=== PATIENT | male | born 1985 | race Caucasian/White ===

== ENCOUNTER 2020-01-01 12:04 | Emergency (ER) | payer OTHER ==
[2020-01-01] MEDS ORDERED: OSELTAMIVIR 75 MG CAP ONE (13:29)
[2020-01-01] MEDS ORDERED: AZITHROMYCIN 250 MG TAB ONE (13:29)
[2020-01-01] MEDS ORDERED: KETOROLAC 30 MG/ML INJ ONE (13:29)
--- NOTE | 2020-01-01 13:39 | ER ---
Nurse's Notes [facility] Name: Reji Ramirez Jr Age: 34 yrs Sex: Male : 1985 Arrival Date: 01/01/2020 Time: 12:15 Bed 17 Private MD: Diagnosis: Influenza due to certain identified influenza viruses Presentation: 01/01 12:28 Presenting complaint: Patient states: Fever, unsure how high, body aches, and cough, iw reports unable to lay flat on back without the cough getting worse, pt states he has felt this way for several days per the pt mother. Transition of care: patient was not received from another setting of care. Onset of symptoms was January 01, 2020. Risk Assessment: Do you want to hurt yourself or someone else? Patient reports no desire to harm self or others. Initial Sepsis Screen: Does the patient meet any 2 criteria? No. Patient's initial sepsis screen is negative. Does the patient have a suspected source of infection? No. Patient's initial sepsis screen is negative. Care prior to arrival: None. 12:28 Method Of Arrival: Ambulatory iw 12:28 Acuity: ONOFRE 3 sg Triage Assessment: 12:30 General: Appears in no apparent distress. uncomfortable, ill, Behavior is cooperative, bp appropriate for age, anxious. Pain: Denies pain. EENT: Nares with drainage noted. Neuro: No deficits noted. Cardiovascular: Rhythm is sinus tachycardia. Respiratory: Reports cough that is Airway is patent. GI: No signs and/or symptoms were reported involving the gastrointestinal system. : No signs and/or symptoms were reported regarding the genitourinary system. Derm: No deficits noted. Musculoskeletal: No deficits noted. Historical: - Allergies: 12:30 No Known Allergies; iw - PMHx: 12:30 narcolepsy; iw - PSHx: 12:30 brain tumor resection; brain shunt; iw - Immunization history:: Adult Immunizations up to date. - Coronavirus screen:: The patient has NOT traveled to [place], [place], or [place] in the past 14 days. The patient has NOT had contact with known/suspected case of Coronavirus?. - Social history:: Patient/guardian denies using alcohol, street drugs, The patient lives with family, Smoking status: Patient reports the use of cigarette tobacco products. - Family history:: not pertinent. - Ebola Screening: : Patient negative for fever greater than or equal to 101.5 degrees Fahrenheit, and additional compatible Ebola Virus Disease symptoms Patient denies exposure to infectious person Patient denies travel to an Ebola-affected area in the 21 days before illness onset No symptoms or risks identified at this time. Screenin:30 Abuse screen: Denies threats or abuse. Denies injuries from another. Nutritional bp screening: No deficits noted. Tuberculosis screening: No symptoms or risk factors identified. Fall Risk None identified. Assessment: 12:30 General: SEE TRIAGE NOTE. bp 14:05 Reassessment: PT D/C HOME AMBULATORY WITH FAMILY, DX WITH INFLUENZA. bp Vital Signs: 12:28 BP 132 / 72; Pulse 157; Resp 20; Pulse Ox 97% on R/A; Pain 4/10; sg 12:42 Pulse 157; Resp 24; Temp 100.4; Pulse Ox 94% ; bp 14:04 BP 121 / 69; Pulse 117; Resp 20; Temp 99.9; Pulse Ox 97% ; bp ED Course: 12:15 Patient arrived in ED. as 12:29 Kerri Palacios MD is Attending Physician. ma2 12:29 Triage completed. iw 12:30 Arm band placed on. iw 12:30 Patient has correct armband on for positive identification. Bed in low position. Call bp light in reach. Side rails up X2. Adult w/ patient. 12:30 No provider procedures requiring assistance completed. Patient did not have IV access bp during this emergency room visit. 12:36 Emiliano León, RN is Primary Nurse. bp Administered Medications: 13:31 Drug: TORadol 60 mg Route: IM; Site: left deltoid; bp 14:08 Follow up: Response: No adverse reaction bp 13:31 Drug: Tamiflu 75 mg Route: PO; bp 14:08 Follow up: Response: No adverse reaction bp 13:31 Drug: AZITHromycin 500 mg Route: PO; bp 14:08 Follow up: Response: No adverse reaction bp Outcome: 12:30 Discharged to home ambulatory, with family. bp 12:30 Condition: stable 12:30 Discharge instructions given to patient, Instructed on discharge instructions, follow up and referral plans. medication usage, Demonstrated understanding of instructions, follow-up care, medications, Prescriptions given X 4. 13:38 Discharge ordered by . ma2 14:04 Patient left the ED. iw Signatures: Chester Gonzalez RN RN sg Kristyn Hernandez as Sirisha Morrison RN RN iw Emiliano León RN RN bp Kerri Palacios MD MD ma2 Corrections: (The following items were deleted from the chart) 12:42 12:28 BP 132 / 72; Pulse 87bpm; Resp 20bpm; Pulse Ox 97% RA; Pain 4/10; iw bp 12:42 12:28 Pulse 157bpm; Resp 24bpm; Pulse Ox 94%; Temp 100.4F; bp bp 13:04 12:28 Acuity: ONOFRE 4 iw sg 13:04 12:28 BP 132 / 72; Pulse 87bpm; Resp 20bpm; Pulse Ox 97% RA; Pain 4/10; bp sg 14:04 12:30 BP 121 / 69; Pulse 117bpm; Resp 20bpm; Pulse Ox 97%; Temp 99.9F; bp bp
--- NOTE | 2020-01-01 13:40 | EDPHYS ---
Physician Documentation [facility] Name: Reji Ramirez Jr Age: 34 yrs Sex: Male : 1985 Arrival Date: 01/01/2020 Time: 12:15 Bed 17 Private MD: ED Physician Kerri Palacios HPI: 01/01 13:35 This 34 yrs old Male presents to ER via Ambulatory with complaints of Flu ma2 Symptoms. 13:35 The patient or guardian reports flu symptoms. Onset: The symptoms/episode ma2 began/occurred acutely, suddenly, 2 day(s) ago. Severity of symptoms: At their worst the symptoms were moderate, in the emergency department the symptoms are unchanged. Associated signs and symptoms: Pertinent negatives: ear ache, nausea, sore throat. The patient has not experienced similar symptoms in the past. Historical: - Allergies: 12:30 No Known Allergies; iw - PMHx: 12:30 narcolepsy; iw - PSHx: 12:30 brain tumor resection; brain shunt; iw - Immunization history:: Adult Immunizations up to date. - Coronavirus screen:: The patient has NOT traveled to [place], [place], or [place] in the past 14 days. The patient has NOT had contact with known/suspected case of Coronavirus?. - Social history:: Patient/guardian denies using alcohol, street drugs, The patient lives with family, Smoking status: Patient reports the use of cigarette tobacco products. - Family history:: not pertinent. - Ebola Screening: : Patient negative for fever greater than or equal to 101.5 degrees Fahrenheit, and additional compatible Ebola Virus Disease symptoms Patient denies exposure to infectious person Patient denies travel to an Ebola-affected area in the 21 days before illness onset No symptoms or risks identified at this time. ROS: 13:35 Constitutional: Negative for fever, chills, and weight loss. ma2 13:35 All other systems are negative. Exam: 13:35 Constitutional: This is a well developed, well nourished patient who is awake, alert, ma2 and in no acute distress. Head/Face: Normocephalic, atraumatic. Eyes: Pupils equal round and reactive to light, extra-ocular motions intact. Lids and lashes normal. Conjunctiva and sclera are non-icteric and not injected. Cornea within normal limits. Periorbital areas with no swelling, redness, or edema. ENT: Nares patent. No nasal discharge, no septal abnormalities noted. Tympanic membranes are normal and external auditory canals are clear. Oropharynx with no redness, swelling, or masses, exudates, or evidence of obstruction, uvula midline. Mucous membranes moist. Neck: Trachea midline, no thyromegaly or masses palpated, and no cervical lymphadenopathy. Supple, full range of motion without nuchal rigidity, or vertebral point tenderness. No Meningismus. Chest/axilla: Normal chest wall appearance and motion. Nontender with no deformity. No lesions are appreciated. Cardiovascular: Regular rate and rhythm with a normal S1 and S2. No gallops, murmurs, or rubs. Normal PMI, no JVD. No pulse deficits. Respiratory: Lungs have equal breath sounds bilaterally, clear to auscultation and percussion. No rales, rhonchi or wheezes noted. No increased work of breathing, no retractions or nasal flaring. Abdomen/GI: Soft, non-tender, with normal bowel sounds. No distension or tympany. No guarding or rebound. No evidence of tenderness throughout. Back: No spinal tenderness. No costovertebral tenderness. Full range of motion. Skin: Warm, dry with normal turgor. Normal color with no rashes, no lesions, and no evidence of cellulitis. MS/ Extremity: Pulses equal, no cyanosis. Neurovascular intact. Full, normal range of motion. Neuro: Awake and alert, GCS 15, oriented to person, place, time, and situation. Cranial nerves II-XII grossly intact. Motor strength 5/5 in all extremities. Sensory grossly intact. Cerebellar exam normal. Normal gait. Vital Signs: 12:28 BP 132 / 72; Pulse 157; Resp 20; Pulse Ox 97% on R/A; Pain 4/10; sg 12:42 Pulse 157; Resp 24; Temp 100.4; Pulse Ox 94% ; bp 14:04 BP 121 / 69; Pulse 117; Resp 20; Temp 99.9; Pulse Ox 97% ; bp MDM: 12:27 Patient medically screened. ma2 13:35 Differential Diagnosis: Bronchitis Influenza Upper Respiratory Infection Sinusitis. ma2 Data reviewed: vital signs, nurses notes. Counseling: I had a detailed discussion with the patient and/or guardian regarding: the historical points, exam findings, and any diagnostic results supporting the discharge/admit diagnosis, the presence of at least one elevated blood pressure reading (>120/80) during this emergency department visit, the need for outpatient follow up. Response to treatment: the patient's symptoms have markedly improved after treatment. 01/01 12:27 Order name: Flu; Complete Time: 13:15 hi2 01/01 12:27 Order name: Strep; Complete Time: 13:37 hi2 01/01 13:28 Order name: Throat Culture EDMS Administered Medications: 13:31 Drug: TORadol 60 mg Route: IM; Site: left deltoid; bp 14:08 Follow up: Response: No adverse reaction bp 13:31 Drug: Tamiflu 75 mg Route: PO; bp 14:08 Follow up: Response: No adverse reaction bp 13:31 Drug: AZITHromycin 500 mg Route: PO; bp 14:08 Follow up: Response: No adverse reaction bp Disposition: 01/01/20 13:38 Discharged to Home. Impression: Influenza due to certain identified influenza viruses. - Condition is Stable. - Discharge Instructions: Influenza, Adult. - Prescriptions for Tylenol- Codeine #3 300-30 mg Oral Tablet - take 2 tablet by ORAL route every 6 hours As needed; 30 tablet. Zithromax Z- Julio Cesar 250 mg Oral Tablet - take 1 tablet by ORAL route as directed for 5 days Day 1 - take two (2) tablets one time. Day 2, 3, 4 , 5 take one (1) tablet once daily.; 6 tablet. Medrol (Julio Cesar) 4 mg Oral Tablets, Dose Pack - take 1 tablet by ORAL route as directed - follow package instructions; 1 packet. Tamiflu 75 mg Oral Capsule - take 1 tablet by ORAL route every 12 hours for 5 days; 10 tablet. - Work release form, Medication Reconciliation Form, Thank You Letter, Antibiotic Education, Prescription Opioid Use form. - Follow up: Private Physician; When: Tomorrow; Reason: Continuance of care. Signatures: Dispatcher [employer] Sirisha Page RN RN iw Peltier, Brian, RN RN Kerri Moreno MD MD ma2 Corrections: (The following items were deleted from the chart) 14:04 13:38 01/01/2020 13:38 Discharged to Home. Impression: Influenza due to certain iw identified influenza viruses. Condition is Stable. Discharge Instructions: Influenza, Adult. Prescriptions for Tylenol-Codeine #3 300-30 mg Oral Tablet - take 2 tablet by ORAL route every 6 hours As needed; 30 tablet, Zithromax Z-Julio Cesar 250 mg Oral Tablet - take 1 tablet by ORAL route as directed for 5 days Day 1 - take two (2) tablets one time. Day 2, 3, 4 , 5 take one (1) tablet once daily.; 6 tablet, Medrol (Julio Cesar) 4 mg Oral Tablets, Dose Pack - take 1 tablet by ORAL route as directed - follow package instructions; 1 packet, Tamiflu 75 mg Oral Capsule - take 1 tablet by ORAL route every 12 hours for 5 days; 10 tablet. and Forms are Medication Reconciliation Form, Thank You Letter, Antibiotic Education, Prescription Opioid Use. Follow up: Private Physician; When: Tomorrow; Reason: Continuance of care. ma2
[2020-01-01 14:12] VITALS: BP 121/69; TEMP 99.9; O2SAT 97
== END 2020-01-01 14:04 | disposition home or self-care (01) ==
LOC: ER 12:04
DX: J10.89 Influenza due to other identified influenza virus with other manifestations (principal)
CPT/HCPCS: 87070; 87081; 87804; 96372; 99284

== ENCOUNTER 2021-06-02 20:48 | Emergency (ER) | payer OTHER ==
--- OUTSIDE RECORDS SUMMARY | 2021-06-02 20:51 | XMS REPORT | Continuity of Care Document ---
:1985 Author Organization [facility] t Address [address] [place] [address] Care Team Providers Name Role Phone LOUIE Primary Care Physician Unavailable SYSTEM, NOT IN Attending Clinician Unavailable Lab, Fam Pob I Attending Clinician Unavailable Doctor Unassigned, Name Attending Clinician Unavailable Problems This patient has no known problems. Allergies, Adverse Reactions, Alerts This patient has no known allergies or adverse reactions. Medications This patient has no known medications. Procedures This patient has no known procedures. Encounters Start End Encounter Admission Attending Care Care Encounter Source Date/Time Date/Time Type Type Clinicians Facility Department ID 2020-06-07 Outpatient SYSTEM, [facility] [id number] 09:28:03 PROVIDER Guillermo nguyen 2020-12-06 2020-12-06 Laboratory Lab, [facility] [id number] 15:25:11 16:08:15 Only Fam Pob I Health [id number] [place] [id number] [facility] [phone] [address] 2020-12-06 2020-12-06 Letter Doctor BISI [id number] 00:00:00 00:00:00 (Out) Unassigned, NICKOLAS [id number] [place] [facility] [phone] [id number] Results This patient has no known results.
--- NOTE | 2021-06-02 22:53 | EDPHYS ---
Physician Documentation [facility] Name: Reji Ramirez Jr Age: 35 yrs Sex: Male : 1985 Arrival Date: 06/02/2021 Time: 20:55 Bed 12 Private MD: ANITRA Physician Darshan Ram HPI: 06/02 22:50 This 35 yrs old Male presents to ER via Ambulatory with complaints of jmm Toothache. 22:50 The patient presents with pain. Onset: The symptoms/episode began/occurred gradually. jmm Duration: The symptoms are continuous. Modifying factors: The symptoms are alleviated by nothing, the symptoms are aggravated by nothing. Associated signs and symptoms: Pertinent negatives: fever. The patient has experienced similar episodes in the past. Historical: - Allergies: 21: No Known Allergies; vg1 - Home Meds: 21:01 None [Active]; vg1 - PMHx: 21:01 narcolepsy; vg1 - Immunization history:: Adult Immunizations. - Social history:: Smoking status: Patient reports the use of cigarette tobacco products, smokes one pack cigarettes per day. ROS: 22:50 Constitutional: Negative for fever, chills, and weight loss, Cardiovascular: Negative jmm for chest pain, palpitations, and edema, Respiratory: Negative for shortness of breath, cough, wheezing, and pleuritic chest pain. 22:50 Abdomen/GI: Negative for abdominal pain, nausea, vomiting, diarrhea, and constipation, Back: Negative for injury and pain, Neuro: Negative for headache, weakness, numbness, tingling, and seizure. 22:50 ENT: Positive for dental pain. 22:50 All other systems are negative. Exam: 22:50 Constitutional: This is a well developed, well nourished patient who is awake, alert, jmm and in no acute distress. Head/Face: atraumatic. Eyes: EOMI, no conjunctival erythema appreciated 22:50 Neck: Trachea midline, Supple Chest/axilla: Normal chest wall appearance and motion. Cardiovascular: Regular rate and rhythm. No edema appreciated Respiratory: Normal respirations, no respiratory distress appreciated Abdomen/GI: Non distended, soft Back: Normal ROM Skin: General appearance color normal MS/ Extremity: Moves all extremities, no obvious deformities appreciated, no edema noted to the lower extremities Neuro: Awake and alert, normal gait Psych: Behavior is normal, Mood is normal, Patient is cooperative and pleasant 22:50 ENT: Dental exam: dental caries, that is moderate, diffusely, specifically in the upper left second bicuspid (#13), upper left first molar (#14), upper left second molar (#15), upper left third molar (#16), lower left second molar (#18), lower left first molar (#19), lower left second bicuspid (#20) and lower left first bicuspid (#21). Vital Signs: 20:58 BP 138 / 94; Pulse 94; Resp 16; Temp 98.4; Pulse Ox 100% ; Weight 68.04 kg; Height 5 vg1 ft. 6 in. (167.64 cm); Pain 10/10; 20:58 Body Mass Index 24.21 (68.04 kg, 167.64 cm) vg1 MDM: 22:50 Patient medically screened. [facility] 22:51 Data reviewed: vital signs, nurses notes. Counseling: I had a detailed discussion with amrit the patient and/or guardian regarding: the historical points, exam findings, and any diagnostic results supporting the discharge/admit diagnosis, the need for outpatient follow up, to return to the emergency department if symptoms worsen or persist or if there are any questions or concerns that arise at home. ED course: Patient is alert and non toxic in appearance in the ED. PE not concerning for ludwigs angina. Patient advised to follow up with dentist and otherwise given strict return precautions. Patient understood and agrees with the plan of care. . Administered Medications: 23:01 Drug: Amoxicillin 875 mg Route: PO; em 23:04 Follow up: Response: No adverse reaction em Disposition: 06/03 06:27 Co-signature as Attending Physician, Darshan Ram MD. [email or web address] Disposition Summary: 06/02/21 22:53 Discharge Ordered Location: Home [facility] Condition: Stable [facility] Diagnosis - Dental caries, unspecified [facility] Followup: [facility] - With: Private Physician - When: 2 - 3 days - Reason: Recheck today's complaints, Continuance of care, Re-evaluation by your physician Discharge Instructions: - Discharge Summary Sheet [facility] - Dental Caries, Adult [facility] Forms: - Medication Reconciliation Form [facility] - Thank You Letter [facility] - Antibiotic Education [facility] - Prescription Opioid Use [facility] Prescriptions: - Amoxicillin 875 mg Oral Tablet - take 1 tablet by ORAL route every 12 hours for 10 days; 20 tablet; Refills: 0, jmm Product Selection Permitted Signatures: Jeffrey Morales PA PA jmm Munoz, Edgar, RN RN Cary Madrigal RN RN vg1 Darshan Ram MD MD [email or web address]
--- NOTE | 2021-06-02 22:53 | ER ---
Nurse's Notes [facility] Name: Reji Ramirez Jr Age: 35 yrs Sex: Male : 1985 Arrival Date: 06/02/2021 Time: 20:55 Bed 12 Private MD: Diagnosis: Dental caries, unspecified Presentation: 06/02 20:58 Chief complaint: Patient states: "I've been dealing with tooth pain for years now; went vg1 to dentist and they said I needed most of my teeth removed. The pain just hurts really bad, I cant eat right or brush my teeth right.". Coronavirus screen: Client denies travel out of the [place] in the last 14 days. Ebola Screen: Patient negative for fever greater than or equal to 101.5 degrees Fahrenheit, and additional compatible Ebola Virus Disease symptoms. Initial Sepsis Screen: Does the patient meet any 2 criteria? No. Patient's initial sepsis screen is negative. Does the patient have a suspected source of infection? No. Patient's initial sepsis screen is negative. Risk Assessment: Do you want to hurt yourself or someone else? Patient reports no desire to harm self or others. Onset of symptoms was June 02, 2021. 20:58 Method Of Arrival: Ambulatory 1 20:58 Acuity: ONOFRE 4 vg1 Triage Assessment: 21:01 General: Appears in no apparent distress. comfortable, Behavior is calm, cooperative. vg1 Pain: Complains of pain in mouth. EENT: Reports pain in left jaw. Historical: - Allergies: 21:01 No Known Allergies; vg1 - Home Meds: 21:01 None [Active]; vg1 - PMHx: 21:01 narcolepsy; vg1 - Immunization history:: Adult Immunizations. - Social history:: Smoking status: Patient reports the use of cigarette tobacco products, smokes one pack cigarettes per day. Screenin:08 Abuse screen: Denies threats or abuse. Nutritional screening: No deficits noted. em Tuberculosis screening: No symptoms or risk factors identified. Fall Risk None identified. Assessment: 22:08 General: Appears in no apparent distress. comfortable, Behavior is calm, cooperative, em appropriate for age, Denies fever. Pain: Complains of pain in left jaw Pain currently is 10 out of 10 on a pain scale. Neuro: Level of Consciousness is awake, alert, obeys commands, Oriented to person, place, time, situation. Cardiovascular: Capillary refill < 3 seconds Patient's skin is warm and dry. Respiratory: Airway is patent Respiratory effort is even, unlabored, Respiratory pattern is regular, symmetrical. EENT: Oral mucosa is moist. Derm: Skin is intact, is healthy with good turgor, Skin is pink, warm \\T\\ dry. Musculoskeletal: Capillary refill < 3 seconds, Range of motion: intact in all extremities. Vital Signs: 20:58 BP 138 / 94; Pulse 94; Resp 16; Temp 98.4; Pulse Ox 100% ; Weight 68.04 kg; Height 5 vg1 ft. 6 in. (167.64 cm); Pain 10/10; 20:58 Body Mass Index 24.21 (68.04 kg, 167.64 cm) vg1 ED Course: 20:55 Patient arrived in ED. es 21:01 Triage completed. vg1 21:01 Arm band placed on Patient placed in waiting room, Patient notified of wait time. vg1 21:25 Jeffrey Morales PA is PHCP. [facility] 21:25 Darshan Ram MD is Attending Physician. [facility] 22:08 Soren Joseph, RN is Primary Nurse. em 22:08 Patient has correct armband on for positive identification. em 23:04 No provider procedures requiring assistance completed. Patient did not have IV access em during this emergency room visit. Administered Medications: 23:01 Drug: Amoxicillin 875 mg Route: PO; em 23:04 Follow up: Response: No adverse reaction em Outcome: 22:53 Discharge ordered by MD. [facility] 23:04 Discharged to home ambulatory. em 23:04 Condition: stable 23:04 Discharge instructions given to patient, Instructed on discharge instructions, follow up and referral plans. medication usage, Demonstrated understanding of instructions, follow-up care, medications, Prescriptions given X 1. 23:05 Patient left the ED. em Signatures: Jeffrey Morales PA PA jmm Salyer, Edna es Munoz, Edgar, RN RN Cary Faustin RN RN vg1
[2021-06-02] MEDS ORDERED: AMOX/K CLAV 875 MG TAB ONE (23:18)
[2021-06-02 23:28] VITALS: BP 138/94; TEMP 98.4; O2SAT 100
== END 2021-06-02 23:05 | disposition home or self-care (01) ==
LOC: ER 20:48
DX: K02.9 Dental caries, unspecified (principal); F17.210 Nicotine dependence, cigarettes, uncomplicated
CPT/HCPCS: 99283

== ENCOUNTER 2022-09-08 12:16 | Emergency (ER) | payer OTHER ==
--- OUTSIDE RECORDS SUMMARY | 2022-09-08 12:19 | XMS REPORT | Continuity of Care Document ---
:1985 Author Organization [facility] t Address [address] [place] [address] Care Team Providers Name Role Phone SANDY PALMA Primary Care Physician Unavailable SYSTEM, PROVIDER NOT IN Attending Clinician Unavailable Lab, [facility] Pob I Attending Clinician Unavailable Candice Gonzalez Attending Clinician CANDICE CENTENO Attending Clinician Unavailable Doctor Unassigned, [place] Attending Clinician Unavailable Payers Payer Name Policy Type Policy Number Effective Date Expiration Date [facility] [id number] 2020 MEDICARE ADV HMO 00:00:00 Problems This patient has no known problems. Allergies, Adverse Reactions, Alerts Allergy Allergy Status Severity Reaction(s) Onset Inactive Treating Comm ents Source Name Type Date Date Clinician NO KNOWN Drug Active Univers ALLERGIE Class ity of [facility] Social History Social Habit Start Date Stop Date Quantity Comments Source [facility] to [facility] Smoking Status Start Date Stop Date Source Unknown if ever smoked Universit y [facility] Medications This patient has no known medications. Procedures This patient has no known procedures. Encounters Start End Encounter Admission Attending Care Care Encounter Source Date/Time Date/Time Type Type Clinicians Facility Department ID 2020-06-07 Outpatient SYSTEM, ASHWIN CHRISTOPHER [id number] 09:28:03 PROVIDER Guillermo o n 2020-12-06 2020-12-06 Laboratory Lab, [facility] [id number] 15:25:11 16:08:15 Only Fam Pob I Health [id number] [place] [id number] Professio [phone] nal [facility] Office Building One 2020-12-06 2020-12-06 Laboratory Lab, Adc Fam Pob I [facility] [id number]. [id number] [facility] 15:25:11 16:08:15 Only [facility] [id number] ity of [place] [id number] Nain as Professio [phone] [place] dical [address] Office [address] 2020-12-06 2020-12-06 Outpatient R [facility]O [facility] [id number] Univers 15:00:00 15:00:00 CANDICE ity of [facility] 2020-12-06 2020-12-06 Letter Doctor BISI [id number] Univers 00:00:00 00:00:00 (Out) Unassigned, NICKOLAS [id number] ity of [place] [facility] [id number] Nain as [phone] [address] 2020-12-06 2020-12-06 Letter Doctor BISI [id number] 00:00:00 00:00:00 (Out) Unassigned, NICKOLAS [id number] [place] [facility] [id number] [phone] [id number] Results This patient has no known results.
[2022-09-08] MEDS ORDERED: BUPIVACAINE 0.5% PF 10 ML VIAL ONE (13:06)
[2022-09-08] MEDS ORDERED: MORPHINE 4 MG/ML SYR ONE (13:06)
[2022-09-08] MEDS ORDERED: ONDANSETRON 4 MG/2 ML VIAL ONE (13:06)
[2022-09-08] MEDS ORDERED: LIDOCAINE 1% W/EPI 1:100,000 10 ML VIAL ONE (13:06)
[2022-09-08 13:31] LABS: Absolute Lymphocytes (CBC) 1.7 K/uL (0.7-4.9); Hematocrit 57.2 % (39.6-49.0); Lymphocytes % 14.2 % (15.3-44.8); MCV 98.3 fL (80-100); MPV 9.3 fL (7.6-11.3); RBC Red Blood Cell Count 5.82 M/uL (4.33-5.43)
[2022-09-08 13:47] LABS: Potassium 3.7 mmol/L (3.5-5.1)
[2022-09-08] MEDS ORDERED: KETOROLAC 30 MG/ML INJ ONE (14:05)
[2022-09-08] MEDS ORDERED: CLINDAMYCIN 900MG/D5W 900 MG/50 ML IVPB IV ONE (14:06)
--- NOTE | 2022-09-08 15:02 | EDPHYS ---
Physician Documentation [facility] Name: Reji Ramirez Jr Age: 36 yrs Sex: Male : 1985 Arrival Date: 09/08/2022 Time: 12:22 Bed 16 Private MD: ED Physician Rocky Meza HPI: 09/08 12:50 This 36 yrs old Male presents to ER via Ambulatory with complaints of Facial Swelling, cp Toothache. 12:50 The patient presents with swelling. The problem is located in the right upper jaw. cp 12:50 Onset: The symptoms/episode began/occurred 2 day(s) ago. Associated signs and symptoms: cp Pertinent positives: pain, Pertinent negatives: dysphagia, fever, inability to eat, vomiting. Severity of symptoms: in the emergency department the symptoms are unchanged, despite home interventions. Historical: - Allergies: 12:28 No Known Allergies; hb - PMHx: 12:28 narcolepsy; hb - PSHx: 12:28 Brain tumor resection; hb - Immunization history:: Adult Immunizations up to date. - Social history:: Smoking status: Patient reports the use of cigarette tobacco products, smokes one-half pack cigarettes per day. ROS: 13:00 Constitutional: Negative for body aches, chills, fever, poor PO intake. cp 13:00 Eyes: Negative for injury, pain, redness, and discharge. cp 13:00 ENT: Positive for dental pain, Negative for drainage from ear(s), ear pain, sore throat, difficulty swallowing, difficulty handling secretions. 13:00 Respiratory: Negative for cough, shortness of breath, wheezing. 13:00 Abdomen/GI: Negative for abdominal pain, nausea, vomiting, and diarrhea. 13:00 Skin: Positive for swelling, of the face. 13:00 All other systems are negative. Exam: 13:05 Constitutional: The patient appears in no acute distress, alert, awake, non-toxic, well cp developed, well nourished, uncomfortable. 13:05 Head/face: Noted is swelling, that is mild, of the right cheek, tenderness, that is cp mild, of the right cheek. 13:05 Eyes: Periorbital structures: appear normal, Pupils: equal, round, and reactive to light and accomodation, Extraocular movements: intact throughout, Conjunctiva: normal, no exudate, no injection, Sclera: no appreciated abnormality, Lids and lashes: appear normal, bilaterally. 13:05 ENT: External ear(s): are unremarkable, Ear canal(s): are normal, clear, TM's: bulging, is not appreciated, bilaterally, dullness, bilaterally, erythema, is not appreciated, bilaterally, Nose: is normal, Mouth: Lips: moist, Oral mucosa: moist, Gums: reddened, swollen, on the upper right first molar, Posterior pharynx: Airway: no evidence of obstruction, patent, swelling, is not appreciated, erythema, is not appreciated, exudate, is not appreciated, Dental exam: abscess, that is mild, specifically in the upper right first molar (#3), dental caries, that is severe, diffusely, Voice: is normal. 13:05 Neck: ROM/movement: is normal, is supple, without pain, no range of motions limitations, no nuchal rigidity. 13:05 Chest/axilla: Inspection: normal. 13:05 Cardiovascular: Rate: normal, Rhythm: regular. 13:05 Respiratory: the patient does not display signs of respiratory distress, Respirations: normal, no use of accessory muscles, no retractions, labored breathing, is not present, Breath sounds: are clear throughout, no decreased breath sounds, no stridor, no wheezing. 13:05 Abdomen/GI: Inspection: abdomen appears normal, Palpation: abdomen is soft and non-tender, in all quadrants. 13:05 Skin: no rash present. Vital Signs: 12:26 BP 144 / 106; Pulse 103; Resp 16; Temp 98.1(TE); Pulse Ox 97% ; Weight 65.77 kg; Height hb 5 ft. 6 in. (167.64 cm); Pain 7/10; 14:15 BP 142 / 102; Pulse 86; Resp 18; Pulse Ox 100% on R/A; em6 15:10 BP 133 / 97; Pulse 80; Resp 16; Pulse Ox 100% ; em6 12:26 Body Mass Index 23.40 (65.77 kg, 167.64 cm) hb Procedures: 15:00 I \T\ D: Incision and drainage was performed for an abscess of the upper right first cp molar Anesthetized with 3 ccs 50/50 mixture 1% lidocaine with epi and 0.5% marcaine. Incised with #11 blade. Drained small amount purulent fluid. the patient tolerated the procedure well. MDM: 12:33 Patient medically screened. cp 13:00 Differential diagnosis: dental caries, gingivitis, dental abscess. cp 15:01 Data reviewed: vital signs, nurses notes. cp 15:01 Counseling: I had a detailed discussion with the patient and/or guardian regarding: the cp historical points, exam findings, and any diagnostic results supporting the discharge/admit diagnosis, the need for outpatient follow up, a dentist, to return to the emergency department if symptoms worsen or persist or if there are any questions or concerns that arise at home. Response to treatment: the patient's symptoms have markedly improved after treatment, and as a result, I will discharge patient. 09/08 12:39 Order name: CBC with Diff; Complete Time: 13:48 cp 09/08 13:48 Interpretation: Normal except: WBC 11.80; RBC 5.82; HGB 19.3; HCT 57.2; PLT 147; LYM% cp 14.2; MN% 13.7; NEUT A 8.3; MNA 1.6. 09/08 12:39 Order name: BMP; Complete Time: 13:48 cp 09/08 12:39 Order name: IV; Complete Time: 13:25 cp Administered Medications: 13:05 Drug: morphine 4 mg Route: IVP; Infused Over: 4 mins; Site: left forearm; em6 13:46 Follow up: Response: No adverse reaction em6 13:05 Drug: Zofran (Ondansetron) 4 mg Route: IVP; Site: left forearm; em6 13:46 Follow up: Response: No adverse reaction em6 14:10 Drug: Clindamycin 900 mg Route: IVPB; Infused Over: 30 mins; Site: left forearm; em6 14:47 Follow up: Response: No adverse reaction; IV Status: Completed infusion mb8 14:10 Drug: Ketorolac 15 mg Route: IVP; Site: left forearm; em6 15:02 Follow up: Response: No adverse reaction em6 14:50 Drug: Lidocaine-Epinephrine -1%: (1:100,000) 5 ml {Note: administered by Tyler NORRIS em6 .} Volume: 20 ml; Route: Infiltration; 15:05 Follow up: Response: No adverse reaction em6 14:50 Drug: Marcaine (bupivacaine) (0.5 %) 5 ml {Note: administered by Tyler NORRIS .} em6 Volume: 10 ml; Route: Infiltration; 15:04 Follow up: Response: No adverse reaction em6 Disposition Summary: 09/08/22 15:01 Discharge Ordered Location: Home cp Problem: new cp Symptoms: have improved cp Condition: Stable cp Diagnosis - Other specified disorders of teeth and supporting structures - dental abscess cp Followup: cp - With: Lawrence Welch DDS - When: 2 - 3 days - Reason: Recheck today's complaints Discharge Instructions: - Discharge Summary Sheet cp - Dental Abscess cp - Dental Pain cp Forms: - Medication Reconciliation Form cp - Thank You Letter cp - Antibiotic Education cp - Prescription Opioid Use cp Prescriptions: - Clindamycin HCl 300 mg Oral Capsule - take 1 capsule by ORAL route every 6 hours for 10 days; 40 capsule; Refills: 0, cp Product Selection Permitted - Ibuprofen 800 mg Oral Tablet - take 1 tablet by ORAL route every 8 hours As needed take with food; 30 tablet; cp Refills: 0, Product Selection Permitted - Tylenol-Codeine #3 300 mg-30 mg Oral - take 2 tablet by ORAL route every 8-10 hours; 14 tablet; Refills: 0, Product cp Selection Permitted Signatures: Dispatcher [employer] EDTyler Winslow PA PA cp Puja Inman, RN MARÍA ELENA Fernanda Hernandez RN RN em6 Trevin Pride RN mb8
--- NOTE | 2022-09-08 15:02 | ER ---
Nurse's Notes [facility] Name: Reji Ramirez Jr Age: 36 yrs Sex: Male : 1985 Arrival Date: 09/08/2022 Time: 12:22 Bed 16 Private MD: Diagnosis: Other specified disorders of teeth and supporting structures-dental abscess Presentation: 09/08 12:26 Chief complaint: Right sided facial swelling and top molar pain x 2 days. Coronavirus hb screen: At this time, the client does not indicate any symptoms associated with coronavirus-19. Ebola Screen: No symptoms or risks identified at this time. Initial Sepsis Screen: Does the patient meet any 2 criteria? No. Patient's initial sepsis screen is negative. Does the patient have a suspected source of infection? No. Patient's initial sepsis screen is negative. Risk Assessment: Do you want to hurt yourself or someone else? Patient reports no desire to harm self or others. Onset of symptoms was September 07, 2022. 12:26 Method Of Arrival: Ambulatory hb 12:26 Acuity: ONOFRE 4 hb Triage Assessment: 12:50 General: Appears comfortable. EENT: Reports pain in mouth. em6 Historical: - Allergies: 12:28 No Known Allergies; hb - PMHx: 12:28 narcolepsy; hb - PSHx: 12:28 Brain tumor resection; hb - Immunization history:: Adult Immunizations up to date. - Social history:: Smoking status: Patient reports the use of cigarette tobacco products, smokes one-half pack cigarettes per day. Screenin:05 Abuse screen: Denies threats or abuse. Nutritional screening: No deficits noted. em6 Tuberculosis screening: No symptoms or risk factors identified. Fall Risk IV access (20 points). Total Barnard Fall Scale indicates No Risk (0-24 pts). Assessment: 12:50 General: Appears comfortable, Behavior is cooperative. Pain: Complains of pain in right em6 buccal mucosa Pain does not radiate. Pain currently is 9 out of 10 on a pain scale. Quality of pain is described as sharp. Neuro: Level of Consciousness is awake, alert, obeys commands, Oriented to person, place, time, situation. Cardiovascular: Heart tones present Patient's skin is warm and dry. Respiratory: Airway is patent Respiratory effort is even, unlabored, Respiratory pattern is regular, symmetrical. GI: No signs and/or symptoms were reported involving the gastrointestinal system. : No signs and/or symptoms were reported regarding the genitourinary system. EENT: swelling in the right cheek. Missing tooth's noted and caries noted. . Derm: No signs and/or symptoms reported regarding the dermatologic system. Musculoskeletal: Circulation, motion, and sensation intact. Range of motion: intact in all extremities. 13:46 Reassessment: No changes from previously documented assessment. Patient and/or family em6 updated on plan of care and expected duration. Pain level reassessed. Patient is alert, oriented x 3, equal unlabored respirations, skin warm/dry/pink. 14:50 Reassessment: No changes from previously documented assessment. Patient and/or family em6 updated on plan of care and expected duration. Pain level reassessed. Patient is alert, oriented x 3, equal unlabored respirations, skin warm/dry/pink. Vital Signs: 12:26 BP 144 / 106; Pulse 103; Resp 16; Temp 98.1(TE); Pulse Ox 97% ; Weight 65.77 kg; Height hb 5 ft. 6 in. (167.64 cm); Pain 7/10; 14:15 BP 142 / 102; Pulse 86; Resp 18; Pulse Ox 100% on R/A; em6 15:10 BP 133 / 97; Pulse 80; Resp 16; Pulse Ox 100% ; em6 12:26 Body Mass Index 23.40 (65.77 kg, 167.64 cm) hb ED Course: 12:22 Patient arrived in ED. as 12:27 Triage completed. hb 12:28 Arm band placed on. hb 12:30 Tyler Velarde PA is PHCP. cp 12:30 Rocky Meza MD is Attending Physician. cp 12:50 Bed in low position. Call light in reach. Side rails up X2. Pulse ox on. NIBP on. Warm em6 blanket given. 13:02 Fernanda Hernandez, MARÍA ELENA is Primary Nurse. em6 13:05 Inserted saline lock: 20 gauge in left forearm, using aseptic technique. em6 13:25 BMP Sent. em6 13:25 CBC with Diff Sent. em6 15:00 Lawrence Welch DDS is Referral Physician. cp 15:16 No provider procedures requiring assistance completed. em6 15:26 IV discontinued, intact, bleeding controlled, No redness/swelling at site. Pressure em6 dressing applied. Administered Medications: 13:05 Drug: morphine 4 mg Route: IVP; Infused Over: 4 mins; Site: left forearm; em6 13:46 Follow up: Response: No adverse reaction em6 13:05 Drug: Zofran (Ondansetron) 4 mg Route: IVP; Site: left forearm; em6 13:46 Follow up: Response: No adverse reaction em6 14:10 Drug: Clindamycin 900 mg Route: IVPB; Infused Over: 30 mins; Site: left forearm; em6 14:47 Follow up: Response: No adverse reaction; IV Status: Completed infusion mb8 14:10 Drug: Ketorolac 15 mg Route: IVP; Site: left forearm; em6 15:02 Follow up: Response: No adverse reaction em6 14:50 Drug: Lidocaine-Epinephrine -1%: (1:100,000) 5 ml {Note: administered by Tyler NORRIS em6 .} Volume: 20 ml; Route: Infiltration; 15:05 Follow up: Response: No adverse reaction em6 14:50 Drug: Marcaine (bupivacaine) (0.5 %) 5 ml {Note: administered by Tyler NORRIS .} em6 Volume: 10 ml; Route: Infiltration; 15:04 Follow up: Response: No adverse reaction em6 Medication: 15:05 VIS not applicable for this client. em6 Outcome: 15:01 Discharge ordered by . cp 15:25 Discharged to home ambulatory, with family. em6 15:25 Condition: stable 15:25 Discharge instructions given to patient, family, Instructed on discharge instructions, follow up and referral plans. medication usage, Demonstrated understanding of instructions, follow-up care, medications, Prescriptions given X 3. 15:26 Patient left the ED. em6 Signatures: Kristyn Hernandez Corey, PA PA cp Baxter, Heather, RN RN Fernanda Hernandez RN RN em6 Trevin Pride RN RN mb8
[2022-09-08 15:38] VITALS: TEMP 98.1
[2022-09-08 15:39] VITALS: O2SAT 100
[2022-09-08 15:40] VITALS: BP 133/97
== END 2022-09-08 15:26 | disposition home or self-care (01) ==
LOC: ER 12:16
PROC: 0W930ZZ Drainage of Oral Cavity and Throat, Open Approach (ICD-10-PCS; principal; 2022-09-08)
DX: K08.89 Other specified disorders of teeth and supporting structures (principal); K04.7 Periapical abscess without sinus; F17.210 Nicotine dependence, cigarettes, uncomplicated
CPT/HCPCS: 96365; 85025; 80048; 36415; 96375; 99284; 40800; J2405

== ENCOUNTER 2023-01-25 10:25 | Emergency (ER) | payer OTHER ==
--- OUTSIDE RECORDS SUMMARY | 2023-01-25 10:33 | XMS REPORT | Continuity of Care Document ---
:[address] [facility] t Address [address] [place] [address] [address] [place] [address] Care Team Providers Name Role Phone SANDY PALMA Primary Care Physician Unavailable SYSTEM, PROVIDER NOT IN Attending Clinician Unavailable Lab, Adc Fam Pob I Attending Clinician Unavailable Candice Gonzalez Attending Clinician CANDICE CENTENO Attending Clinician Unavailable Doctor Unassigned, [place] Attending Clinician Unavailable Payers Payer Name Policy Type Policy Number Effective Date Expiration Date [facility] [id number] 2020 MEDICARE ADV HMO 00:00:00 Problems This patient has no known problems. Allergies, Adverse Reactions, Alerts Allergy Allergy Status Severity Reaction(s) Onset Inactive Treating Comm ents Source Name Type Date Date Clinician NO KNOWN Drug Active Univers ALLERGIE Class ity of [facility] Social History Social Habit Start Date Stop Date Quantity Comments Source [facility] to [facility] Smoking Status Start Date Stop Date Source Unknown [facility] Medications This patient has no known medications. Procedures This patient has no known procedures. Encounters Start End Encounter Admission Attending Care Care Encounter Source Date/Time Date/Time Type Type Clinicians Facility Department ID 2020-06-07 Outpatient SYSTEM, ASHWIN CHRISTOPHER [id number] 09:28:03 PROVIDER Guillermo o n 2020-12-06 2020-12-06 Laboratory Lab, Adc Fam Pob I [facility] 1.2. [id number] Univers 15:25:11 16:08:15 Only [facility] [id number] ity of [place] [id number] Nain as Professio [phone] Ca dical [address] 2020-12-06 2020-12-06 Laboratory Lab, [facility] [id number] 15:25:11 16:08:15 Only Fam Pob I Health [id number] [place] [id number] Professio [phone] nal [facility] Office Building One 2020-12-06 2020-12-06 Outpatient R [facility] [id number] Univers 15:00:00 15:00:00 CANDICE ity of [facility] 2020-12-06 2020-12-06 Letter Doctor BISI [id number] Univers 00:00:00 00:00:00 (Out) Unassigned, NICKOLAS [id number] ity of [place] [facility] [id number] Nain as [phone] [address] 2020-12-06 2020-12-06 Letter Doctor BISI [id number] 00:00:00 00:00:00 (Out) Unassigned, NICKOLAS [id number] [facility] [phone] [facility] Results This patient has no known results.
--- NOTE | 2023-01-25 11:15 | RAD REPORT ---
EXAM DESCRIPTION: RAD - Chest Single View - 01/25/2023 11:01 am CLINICAL HISTORY: CONGESTION COMPARISON: Chest Pa And Lat (2 Views) dated 01/11/2017 FINDINGS: Lines: Right SPINNING MACHINE OPERATOR shunt tubing. Lungs: No evidence of edema or pneumonia. Pleural: No significant pleural effusions or pneumothorax. Cardiac: The heart size is within normal limits. Mediastinum: Within normal limits. Bones: No acute fractures. Other: None IMPRESSION: No acute cardiopulmonary disease.
[2023-01-25 11:37] LABS: SARS-COV-2 RT PCR NEGATIVE (NEGATIVE)
--- NOTE | 2023-01-25 11:40 | EDPHYS ---
Physician Documentation [facility] Name: Reji Ramirez Jr Age: 37 yrs Sex: Male : 1985 Arrival Date: 01/25/2023 Time: 10:33 Bed IW1 Private MD: ED Physician Nathan Anderson HPI: 01/25 10:37 This 37 yrs old Male presents to ER via Unassigned with complaints of Sinus Congestion, jh7 Cough. 10:37 The patient or guardian reports cough, described as mild, chest and sinus congestion. jh7 Onset: The symptoms/episode began/occurred 3 day(s) ago. Associated signs and symptoms: Pertinent positives: rhinorrhea, Pertinent negatives: chest pain, fever, sore throat, vomiting. Both the patient's parents were diagnosed with the flu on Saturday. The patient reports similar symptoms with flu exposure.. Historical: - Allergies: 10:57 No Known Allergies; jl7 - PMHx: 10:57 narcolepsy; jl7 - PSHx: 10:57 Brain tumor resection; jl7 - Immunization history:: Client reports receiving the 2nd dose of the Covid vaccine. - Social history:: Smoking status: Patient reports the use of cigarette tobacco products, smokes one-half pack cigarettes per day, Patient uses alcohol, on a daily basis. admits to "couple of beers" a day. ROS: 10:37 Constitutional: Negative for fever, chills, and weight loss, Eyes: Negative for injury, jh7 pain, redness, and discharge, Neck: Negative for injury, pain, and swelling, Cardiovascular: Negative for chest pain, palpitations, and edema, Abdomen/GI: Negative for abdominal pain, nausea, vomiting, diarrhea, and constipation, MS/Extremity: Negative for injury and deformity, Skin: Negative for injury, rash, and discoloration, Neuro: Negative for headache, weakness, numbness, tingling, and seizure. 10:37 ENT: Positive for nasal discharge, sinus congestion, Negative for sore throat. 10:37 Respiratory: Positive for cough, Negative for shortness of breath, wheezing. 10:37 All other systems are negative. Exam: 10:37 Constitutional: This is a well developed, well nourished patient who is awake, alert, jh7 and in no acute distress. Head/Face: Normocephalic, atraumatic. Eyes: Pupils equal round and reactive to light, extra-ocular motions intact. Lids and lashes normal. Conjunctiva and sclera are non-icteric and not injected. Cornea within normal limits. Periorbital areas with no swelling, redness, or edema. Neck: Trachea midline, no thyromegaly or masses palpated, and no cervical lymphadenopathy. Supple, full range of motion without nuchal rigidity, or vertebral point tenderness. No Meningismus. Cardiovascular: Regular rate and rhythm with a normal S1 and S2. No gallops, murmurs, or rubs. Normal PMI, no JVD. No pulse deficits. Respiratory: Lungs have equal breath sounds bilaterally, clear to auscultation and percussion. No rales, rhonchi or wheezes noted. No increased work of breathing, no retractions or nasal flaring. Abdomen/GI: Soft, non-tender, with normal bowel sounds. No distension or tympany. No guarding or rebound. No evidence of tenderness throughout. Skin: Warm, dry with normal turgor. Normal color with no rashes, no lesions, and no evidence of cellulitis. MS/ Extremity: Pulses equal, no cyanosis. Neurovascular intact. Full, normal range of motion. Neuro: Awake and alert, GCS 15, oriented to person, place, time, and situation. Normal gait. 10:37 ENT: TM's: are normal, Nose: nasal drainage, and is seen coming from both nares, that is clear, Posterior pharynx: post nasal drainage. Vital Signs: 10:50 BP 147 / 93; Pulse 86; Resp 17; Temp 98.4; Pulse Ox 96% ; Weight 74.84 kg; Height 5 ft. jl7 6 in. (167.64 cm); Pain 0/10; 10:50 Body Mass Index 26.63 (74.84 kg, 167.64 cm) 7 MDM: 10:[address] [facility] 11:39 Differential Diagnosis: Bronchitis Influenza Upper Respiratory Infection Sinusitis 7 Otitis Media Viral Syndrome. Data reviewed: vital signs, nurses notes. Counseling: I had a detailed discussion with the patient and/or guardian regarding: the historical points, exam findings, and any diagnostic results supporting the discharge/admit diagnosis, to return to the emergency department if symptoms worsen or persist or if there are any questions or concerns that arise at home. Special discussion: I discussed with the patient/guardian that the patient's current presentation does not indicate dosing of antibiotics. They should follow-up with their primary care provider and return if the symptoms persist or progress. 01/25 10:42 Order name: COVID-19/FLU A+B [facility] 01/25 10:42 Order name: XRAY Chest (1 view) [facility] 01/25 11:16 Order name: RAD; Complete Time: 11:16 EDMS 01/25 11:37 Order name: COVID-19/FLU A+B; Complete Time: 11:39 EDMS Administered Medications: No medications were administered Disposition: 18:53 Co-signature as Attending Physician, Nathan Anderson DO I was immediately available on-site ms3 in the Emergency Department for consultation in the care of the patient. Disposition Summary: 01/25/23 11:39 Discharge Ordered Location: Home [facility] Problem: [facility] Symptoms: are unchanged [facility] Condition: Stable [facility] Diagnosis - Acute upper respiratory infection, unspecified [facility] Followup: [facility] - With: Private Physician - When: 2 - 3 days - Reason: Recheck today's complaints Discharge Instructions: - Discharge Summary Sheet [facility] - Upper Respiratory Infection, Adult [facility] - Viral Respiratory Infection [facility] Forms: - Medication Reconciliation Form [facility] - Thank You Letter [facility] Prescriptions: - ProAir HFA 90 mcg/actuation Inhalation HFA aerosol inhaler - inhale 2 puff by INHALATION route every 4-6 hours As needed; 1 Inhaler; [facility] Refills: 0, Product Selection Permitted - Tessalon Perles 100 mg Oral Capsule - take 1 capsule by ORAL route every 8 hours As needed; 15 capsule; Refills: 0, [facility] Product Selection Permitted Signatures: Dispatcher [employer] Chelsea Sanderson RN RN jl7 Nathan Anderson DO DO ms3 Brandy Calderon FNP [facility]
--- NOTE | 2023-01-25 11:40 | ER ---
Nurse's Notes [facility] Name: Reji Ramirez Jr Age: 37 yrs Sex: Male : 1985 Arrival Date: 01/25/2023 Time: 10:33 Bed IW1 Private MD: Diagnosis: Acute upper respiratory infection, unspecified Presentation: 01/25 10:50 Chief complaint: Patient states: Cough \\T\\ congestion x 1 week. Coronavirus screen: jl Vaccine status: Patient reports receiving the 2nd dose of the covid vaccine. Client presents with at least one sign or symptom that may indicate coronavirus-19. Standard/surgical mask placed on the client. Ebola Screen: No symptoms or risks identified at this time. Initial Sepsis Screen: Does the patient meet any 2 criteria? No. Patient's initial sepsis screen is negative. Does the patient have a suspected source of infection? No. Patient's initial sepsis screen is negative. Risk Assessment: Do you want to hurt yourself or someone else? Patient reports no desire to harm self or others. Onset of symptoms is unknown. 10:50 Method Of Arrival: Ambulatory 7 10:50 Acuity: ONOFRE 4 jl7 Triage Assessment: 10:57 General: Appears in no apparent distress. uncomfortable, Behavior is calm, cooperative, jl7 appropriate for age. Pain: Denies pain. Respiratory: Reports cough that is Airway is patent Respiratory effort is even, unlabored, Respiratory pattern is regular, symmetrical. Historical: - Allergies: 10:57 No Known Allergies; jl7 - PMHx: 10:57 narcolepsy; jl7 - PSHx: 10:57 Brain tumor resection; jl7 - Immunization history:: Client reports receiving the 2nd dose of the Covid vaccine. - Social history:: Smoking status: Patient reports the use of cigarette tobacco products, smokes one-half pack cigarettes per day, Patient uses alcohol, on a daily basis. admits to "couple of beers" a day. Vital Signs: 10:50 BP 147 / 93; Pulse 86; Resp 17; Temp 98.4; Pulse Ox 96% ; Weight 74.84 kg; Height 5 ft. jl7 6 in. (167.64 cm); Pain 0/10; 10:50 Body Mass Index 26.63 (74.84 kg, 167.64 cm) jl7 ED Course: 10:33 Patient arrived in ED. mr 10:37 Brandy Calderon FNP [facility] 7 10:37 Nathan Anderson DO is Attending Physician. 7 10:57 Triage completed. jl7 10:57 Arm band placed on right wrist. Patient placed in waiting room, Patient notified of jl7 wait time. 11:46 Patient has correct armband on for positive identification. jl7 11:46 No provider procedures requiring assistance completed. Patient did not have IV access jl during this emergency room visit. Administered Medications: No medications were administered Outcome: 11:39 Discharge ordered by . 7 11:46 Discharged to home ambulatory. jl7 11:46 Condition: stable 11:46 Discharge instructions given to patient, Instructed on discharge instructions, follow up and referral plans. medication usage, Demonstrated understanding of instructions, follow-up care, medications, Prescriptions given X 2. 11:46 Patient left the ED. 7 Signatures: Naila Foster PierceChelsea RN RN jl7 Brandy Calderon FNP FNP [facility]
[2023-01-25 11:51] VITALS: BP 147/93; TEMP 98.4; O2SAT 96
== END 2023-01-25 11:46 | disposition home or self-care (01) ==
LOC: ER 10:25
DX: J06.9 Acute upper respiratory infection, unspecified (principal); F17.210 Nicotine dependence, cigarettes, uncomplicated; Z20.822 Contact with and (suspected) exposure to COVID-19
CPT/HCPCS: 0240U; 71045; 99282

== ENCOUNTER 2023-06-08 13:51 | Emergency (ER) | payer OTHER ==
--- OUTSIDE RECORDS SUMMARY | 2023-06-08 13:54 | XMS REPORT | Continuity of Care Document ---
:1985 Author Organization [facility] t Address [address] [place] [address] [address] [place] [address] Care Team Providers Name Role Phone SANDY PALMA Primary Care Physician Unavailable SYSTEM, PROVIDER NOT IN Attending Clinician Unavailable Lab, [facility] Pob I Attending Clinician Unavailable Candice Gonzalez Attending Clinician CANDICE CENTENO Attending Clinician Unavailable Doctor Unassigned, [place] Attending Clinician Unavailable Payers Payer Name Policy Type Policy Number Effective Date Expiration Date [facility] [id number] 2020 MEDICARE ADV HMO 00:00:00 Problems This patient has no known problems. Allergies, Adverse Reactions, Alerts Allergy Allergy Status Severity Reaction(s) Onset Inactive Treating Comm ents Source Name Type Date Date Clinician NO KNOWN Drug Active Univers ALLERGIE Class ity of [facility] Social History Social Habit Start Date Stop Date Quantity Comments Source [facility] to [facility] Smoking Status Start Date Stop Date Source Unknown if ever smoked Universit y [facility] Medications This patient has no known medications. Procedures This patient has no known procedures. Encounters Start End Encounter Admission Attending Care Care Encounter Source Date/Time Date/Time Type Type Clinicians Facility Department ID 2020-06-07 Outpatient SYSTEM, ASHWIN CHRISTOPHER [id number] 09:28:03 PROVIDER Guillermo o n 2020-12-06 2020-12-06 Laboratory Lab, [facility] [id number] 15:25:11 16:08:15 Only Fam Pob I Health [id number] [place] [id number] Professio [phone] nal [facility] Office Building One 2020-12-06 2020-12-06 Laboratory Lab, Adc Fam Pob I [facility] 1.2. [id number] [facility] 15:25:11 16:08:15 Only Sarahjay Candice Health [id number] ity of [place] [id number] Nain as Professio [phone] Md dical [address] Office Building One 2020-12-06 2020-12-06 Outpatient R [facility] [id number] Univers 15:00:00 15:00:00 CANDICE ity of [facility] 2020-12-06 2020-12-06 Letter Doctor BISI [id number] Univers 00:00:00 00:00:00 (Out) Unassigned, NICKOLAS [id number] ity of [place] [facility] [id number] Nain as [phone] [address] 2020-12-06 2020-12-06 Letter Doctor BISI [id number] 00:00:00 00:00:00 (Out) Unassigned, NICKOLAS [id number] [place] [facility] [id number] [phone] [facility] Results This patient has no known results.
--- NOTE | 2023-06-08 14:22 | ER ---
Nurse's Notes [facility] Name: Reji Ramirez Jr Age: 37 yrs Sex: Male : 1985 Arrival Date: 06/08/2023 Time: 13:51 Bed 9 Private MD: Diagnosis: Disorder of teeth and supporting structures, unspecified Presentation: 06/08 13:58 Chief complaint: Left upper tooth pain x 2 days, left sided facial swelling upon waking jl7 today. Coronavirus screen: At this time, the client does not indicate any symptoms associated with coronavirus-19. Ebola Screen: No symptoms or risks identified at this time. Initial Sepsis Screen: Does the patient meet any 2 criteria? No. Patient's initial sepsis screen is negative. Does the patient have a suspected source of infection? No. Patient's initial sepsis screen is negative. Risk Assessment: Do you want to hurt yourself or someone else? Patient reports no desire to harm self or others. Onset of symptoms was June 07, 2023. 13:58 Method Of Arrival: Ambulatory [facility] 13:58 Acuity: ONOFRE 4 jl7 Historical: - Allergies: 14:00 No Known Allergies; jl7 - Home Meds: 14:00 None [Active]; jl7 - PMHx: 14:00 narcolepsy; jl7 - PSHx: 14:00 Brain tumor resection; jl7 - Immunization history:: Adult Immunizations up to date. - Social history:: Smoking status: Patient reports the use of cigarette tobacco products, smokes one pack cigarettes per day. Vital Signs: 13:58 BP 163 / 101; Pulse 82; Resp 16; Temp 99(TE); Pulse Ox 100% on R/A; Weight 74.84 kg; jl7 Height 5 ft. 6 in. ; Pain 5/10; 13:58 Body Mass Index 26.63 (74.84 kg, 167.64 cm) jl7 13:58 Pain Scale: Adult jl ED Course: 13:55 Patient arrived in ED. ts1 14:00 Triage completed. jl7 14:00 Arm band placed on. jl7 14:05 Elida Jorgensen FNP-C [facility] kb 14:05 Tyler Chung MD is Attending Physician. kb Administered Medications: 14:40 Drug: Ibuprofen PO 600 mg Route: PO; hb 14:40 Follow up: Response: Medication administered at discharge. hb Outcome: 14:21 Discharge ordered by . afsaneh 14:40 Discharged to home ambulatory. hb 14:40 Condition: stable 14:40 Discharge instructions given to patient, Instructed on discharge instructions, follow up and referral plans. medication usage, Demonstrated understanding of instructions, follow-up care, medications, Prescriptions given X 1. 14:40 Patient left the ED. hb Signatures: Elida Jorgensen, CLIENT SUPPORT REPRESENTATIVE-C CLIENT SUPPORT REPRESENTATIVE-Puja Donald, RN RN Chelsea Pierce RN RN jl7 Nancy Goncalves, STEPHANIE PAS ts1
[2023-06-08] MEDS ORDERED: IBUPROFEN 200 MG TAB PO ONE (14:47)
[2023-06-08 14:49] VITALS: BP 163/101; TEMP 99; O2SAT 100
--- NOTE | 2023-06-09 14:41 | EDPHYS ---
Physician Documentation [facility] Name: Reji Ramirez Jr Age: 37 yrs Sex: Male : 1985 Arrival Date: 06/08/2023 Time: 13:51 Bed 9 Private MD: ED Physician Tyler Chung HPI: 06/08 15:37 This 37 yrs old Male presents to ER via Ambulatory with complaints of Toothache, Pain kb in mouth. 15:37 The patient presents with pain, redness, swelling. The problem is located in the upper kb left second molar (#15) and upper left first molar (#14) and upper left second bicuspid (#13). Onset: The symptoms/episode began/occurred this morning. Duration: The symptoms are continuous. Modifying factors: The symptoms are alleviated by nothing, the symptoms are aggravated by nothing. Associated signs and symptoms: Pertinent positives: pain, redness in area, swelling. Severity of symptoms: At their worst the symptoms were moderate, in the emergency department the symptoms are unchanged. The patient has experienced similar episodes in the past. The patient has not recently seen a physician. Mother reports pt has had dental problems for years. States he is supposed to follow up with a dental surgeon to have teeth removed, but has not made the appt yet. Pt woke up this morning with swelling. Historical: - Allergies: 14:00 No Known Allergies; jl7 - Home Meds: 14:00 None [Active]; jl7 - PMHx: 14:00 narcolepsy; jl7 - PSHx: 14:00 Brain tumor resection; jl7 - Immunization history:: Adult Immunizations up to date. - Social history:: Smoking status: Patient reports the use of cigarette tobacco products, smokes one pack cigarettes per day. ROS: 15:34 Constitutional: Negative for fever, chills, and weight loss. kb 15:34 ENT: Positive for dental pain. 15:34 All other systems are negative. Exam: 15:34 Constitutional: This is a well developed, well nourished patient who is awake, alert, kb and in no acute distress. Head/Face: Normocephalic, atraumatic. Cardiovascular: Regular rate and rhythm with a normal S1 and S2. No gallops, murmurs, or rubs. No pulse deficits. Respiratory: Respirations even and unlabored. No increased work of breathing. Talking in full sentences Skin: Warm, dry with normal turgor. Normal color. MS/ Extremity: Pulses equal, no cyanosis. Neurovascular intact. Full, normal range of motion. Neuro: Awake and alert, GCS 15, oriented to person, place, time, and situation. Moves all extremities. Normal gait. 15:34 ENT: Dental exam: dental caries, diffusely, gum swelling, that is mild, specifically in the upper left second bicuspid (#13), upper left first molar (#14) and upper left second molar (#15). Vital Signs: 13:58 BP 163 / 101; Pulse 82; Resp 16; Temp 99(TE); Pulse Ox 100% on R/A; Weight 74.84 kg; jl7 Height 5 ft. 6 in. ; Pain 5/10; 13:58 Body Mass Index 26.63 (74.84 kg, 167.64 cm) jl 13:58 Pain Scale: Adult jl7 MDM: 14:05 Patient medically screened. kb 15:37 Differential diagnosis: dental caries, gingivitis, dental abscess. Data reviewed: vital kb signs, nurses notes. Counseling: I had a detailed discussion with the patient and/or guardian regarding: the historical points, exam findings, and any diagnostic results supporting the discharge/admit diagnosis, the need for outpatient follow up, a dentist, to return to the emergency department if symptoms worsen or persist or if there are any questions or concerns that arise at home. Administered Medications: 14:40 Drug: Ibuprofen PO 600 mg Route: PO; 14:40 Follow up: Response: Medication administered at discharge. Disposition Summary: 06/08/23 14:21 Discharge Ordered Location: Home kb Condition: Stable kb Diagnosis - Disorder of teeth and supporting structures, unspecified kb Followup: kb - With: Emergency Department - When: As needed - Reason: Worsening of condition Followup: kb - With: Private Physician - When: 2 - 3 days - Reason: Recheck today's complaints, Continuance of care, Re-evaluation by your physician Discharge Instructions: - Discharge Summary Sheet kb - Dental Pain, [id number] kb - Dental Abscess, [id number] kb Forms: - Medication Reconciliation Form kb - Thank You Letter kb - Antibiotic Education kb - Prescription Opioid Use kb - Patient Portal Instructions kb Prescriptions: - Augmentin 875-125 mg Oral Tablet - take 1 tablet by ORAL route every 12 hours for 10 days; 20 tablet; Refills: 0, kb Product Selection Permitted Signatures: Elida Jorgensen FNP-C FNP-Ckb Baxter, Heather, RN RN hb Chelsea Pierce RN RN jl7
== END 2023-06-08 14:40 | disposition home or self-care (01) ==
LOC: ER 13:51
DX: K08.89 Other specified disorders of teeth and supporting structures (principal); F17.210 Nicotine dependence, cigarettes, uncomplicated
CPT/HCPCS: 99283

== ENCOUNTER 2023-06-09 10:13 | Emergency (ER) | payer OTHER ==
--- OUTSIDE RECORDS SUMMARY | 2023-06-09 10:16 | XMS REPORT | Continuity of Care Document ---
:1985 Author Organization [facility] t Address [address] [place] [address]. [address] [place] [address] Care Team Providers Name Role Phone SANDY PALMA Primary Care Physician Unavailable SYSTEM, PROVIDER NOT IN Attending Clinician Unavailable Lab, [facility] Pob I Attending Clinician Unavailable Candice Gonzalez Attending Clinician CANDICE CENTENO Attending Clinician Unavailable Doctor Unassigned, [place] Attending Clinician Unavailable Payers Payer Name Policy Type Policy Number Effective Date Expiration Date [facility] [id number] 2020 MEDICARE ADV HMO 00:00:00 Problems This patient has no known problems. Allergies, Adverse Reactions, Alerts Allergy Allergy Status Severity Reaction(s) Onset Inactive Treating Comm ents Source Name Type Date Date Clinician NO KNOWN Drug Active Univers ALLERGIE Class ity of [facility] Social History Social Habit Start Date Stop Date Quantity Comments Source Sex [facility] to [facility] Smoking Status Start Date Stop Date Source Unknown if ever smoked Universit y [facility] Medications This patient has no known medications. Procedures This patient has no known procedures. Encounters Start End Encounter Admission Attending Care Care Encounter Source Date/Time Date/Time Type Type Clinicians Facility Department ID 2020-06-07 Outpatient SYSTEM, ASHWIN CHRISTOPHER [id number] 09:28:03 PROVIDER Guillermo o n 2020-12-06 2020-12-06 Laboratory Lab, [facility] [id number] 15:25:11 16:08:15 Only Fam Pob I Health [id number] [place] [id number] Professio [phone] nal [facility] [address] One 2020-12-06 2020-12-06 Laboratory Lab, Adc Fam Pob I [facility] 1.2. [id number] [facility] 15:25:11 16:08:15 Only [facility] [id number] ity of [place] [id number] Nain as Professio [phone] Nm dical [facility] [address] [place] [address] 2020-12-06 2020-12-06 Outpatient R [facility] [id number] Univers 15:00:00 15:00:00 CANDICE ity of [facility] 2020-12-06 2020-12-06 Letter Doctor BISI [id number] 00:00:00 00:00:00 (Out) Unassigned, NICKOLAS [id number] [place] [facility] [id number] [phone] [facility] 2020-12-06 2020-12-06 Letter Doctor BISI [id number] [facility] 00:00:00 00:00:00 (Out) Unassigned, NICKOLAS [id number] ity of [place] [facility] [id number] Nain as [phone] [address] Results This patient has no known results.
[2023-06-09] MEDS ORDERED: FENTANYL CITR 100 MCG/2 ML ONE (10:42)
[2023-06-09] MEDS ORDERED: CLINDAMYCIN 900MG/D5W 900 MG/50 ML IVPB IV ONE (10:42)
[2023-06-09] MEDS ORDERED: ONDANSETRON 4 MG/2 ML VIAL ONE (10:42)
[2023-06-09] MEDS ORDERED: NA CHLORIDE 0.9% 1,000 ML ONE (10:42)
[2023-06-09 10:58] LABS: Absolute Lymphocytes (CBC) 2.1 K/uL (0.7-4.9); MCV 97.4 fL (80-100); MPV 9.5 fL (7.6-11.3); RBC Red Blood Cell Count 5.14 M/uL (4.33-5.43)
[2023-06-09 11:21] LABS: Bilirubin Total 0.8 mg/dL (0.2-1.0); Potassium 3.8 mEq/L (3.5-5.1); Protein, Total 7.9 g/dL (6.4-8.2)
--- NOTE | 2023-06-09 11:35 | ER ---
Nurse's Notes [facility] Name: Reji Ramirez Jr Age: 37 yrs Sex: Male : 1985 Arrival Date: 06/09/2023 Time: 10:13 Bed 6 Private MD: Diagnosis: Dental root caries;Dental caries, unspecified;Periapical abscess without sinus;Elevated white blood cell count Presentation: 06/09 10:22 Chief complaint: Patient states: was seen here yesterday for toothache, started iw antibiotics last night , now left side of face is swollen. 10:22 Coronavirus screen: At this time, the client does not indicate any symptoms associated iw with coronavirus-19. Ebola Screen: Patient negative for fever greater than or equal to 101.5 degrees Fahrenheit, and additional compatible Ebola Virus Disease symptoms Patient denies exposure to infectious person. Patient denies travel to an Ebola-affected area in the 21 days before illness onset. No symptoms or risks identified at this time. Initial Sepsis Screen: Does the patient meet any 2 criteria? No. Patient's initial sepsis screen is negative. Does the patient have a suspected source of infection? No. Patient's initial sepsis screen is negative. Risk Assessment: Do you want to hurt yourself or someone else? Patient reports no desire to harm self or others. Onset of symptoms was June 08, 2023. 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 - Social history:: Smoking status: Patient reports the use of cigarette tobacco products, smokes one-half pack cigarettes per day. - Family history:: not pertinent. Screenin:20 [facility] ED Fall Risk Assessment (Adult) Score/Fall Risk Level 0 - 2 = Low Risk hb Oriented to surroundings, Maintained a safe environment. Abuse screen: Denies threats or abuse. Denies injuries from another. Nutritional screening: No deficits noted. Tuberculosis screening: No symptoms or risk factors identified. Assessment: 10:50 General: Appears in no apparent distress. comfortable, Behavior is calm, cooperative, ph appropriate for age. Pain: Complains of pain in left jaw and left cheek. Neuro: Level of Consciousness is awake, alert, obeys commands, Oriented to person, place, time, situation. Cardiovascular: Capillary refill < 3 seconds in bilateral fingers Patient's skin is warm and dry. Respiratory: Airway is patent Respiratory effort is even, unlabored, Respiratory pattern is regular, symmetrical. GI: No signs and/or symptoms were reported involving the gastrointestinal system. EENT: Poor dentition noted. Derm: Skin is pink, warm \T\ dry. 12:26 Reassessment: Patient appears in no apparent distress at this time. Patient and/or ph family updated on plan of care and expected duration. Pain level reassessed. Patient is alert, oriented x 3, equal unlabored respirations, skin warm/dry/pink. Report called to [facility] ER, awaiting EMS for transport. 13:34 Reassessment: Patient appears in no apparent distress at this time. Patient and/or ph family updated on plan of care and expected duration. Pain level reassessed. Patient is alert, oriented x 3, equal unlabored respirations, skin warm/dry/pink. [facility] at bedside, pt transferred to [facility]. Vital Signs: 10:22 BP 149 / 107; Pulse 99; Resp 16; Temp 99.1(TE); Pulse Ox 95% on R/A; Weight 74.84 kg; iw Height 5 ft. 6 in. ; Pain 9/10; 12:26 BP 140 / 98; Pulse 87; Resp 18; Pulse Ox 100% on R/A; ph 13:34 BP 138 / 98; Pulse 86; Resp 18; Pulse Ox 99% on R/A; ph 10:22 Body Mass Index 26.63 (74.84 kg, 167.64 cm) iw 10:22 Pain Scale: Adult iw ED Course: 10:15 Patient arrived in ED. am2 10:16 Tyler Chung MD is Attending Physician. kierra 10:20 Arm band placed on. hb 10:24 Triage completed. iw 10:40 Initial lab(s) drawn, by me, sent to lab. Missed attempt(s): 22 gauge in right forearm. ph Bleeding controlled, band aid applied, catheter tip intact. Inserted saline lock: 22 gauge in left forearm, using aseptic technique. Blood collected. 10:49 Lucia Alexander, RN is Primary Nurse. ph 10:50 Patient has correct armband on for positive identification. Bed in low position. Call ph light in reach. Side rails up X 1. Pulse ox on. NIBP on. Door closed. Noise minimized. Warm blanket given. 11:42 CT Maxillofacial W/cont In Process Unspecified. EDMS 11:51 No provider procedures requiring assistance completed. Patient transferred, IV remains ph in place. 11:55 1137 called [facility] ,spoke with michael philipp ,1153 she called back kj1 with admin approval per er to er. Administered Medications: 10:52 Drug: NS 0.9% IV 1000 ml Route: IV; Rate: 1 bolus; Site: left antecubital; ph 13:35 Follow up: Response: No adverse reaction; IV Status: Completed infusion; IV Intake: ph 1000ml 10:52 Drug: Clindamycin IVPB 900 mg Route: IVPB; Infused Over: 30 mins; Site: left forearm; ph 11:30 Follow up: Response: No adverse reaction; IV Status: Completed infusion ph 10:52 Drug: fentaNYL (PF) IVP 25 mcg Route: IVP; Site: left forearm; ph 11:49 Follow up: Response: No adverse reaction ph 10:52 Drug: Ondansetron IVP 4 mg Route: IVP; Site: left forearm; ph 11:50 Follow up: Response: No adverse reaction ph 11:49 Drug: Rocephin IV 1 grams Route: IV; Rate: per protocol; Site: left forearm; ph 12:20 Follow up: Response: No adverse reaction; IV Status: Completed infusion ph Medication: 10:50 VIS not applicable for this client. ph Intake: 13:35 IV: 1000ml; Total: 1000ml. ph Outcome: 11:35 ER care complete, transfer ordered by . kierra 13:34 Transferred by ground EMS Alex Shelby. to [facility], Transfer form ph completed. X-rays sent w/ patient. 13:34 Condition: good 13:34 Instructed on the need for transfer. 13:35 Patient left the ED. ph Signatures: Dispatcher [employer] EDUT Tyler Chung MD MD cha Williams, Irene, RN RN iw Hall, Patricia, RN RN Puja Inman RN RN Leonor Heredia am2 Jeanette Jorgensen kj1 Corrections: (The following items were deleted from the chart) : 10:22 Chief complaint: Patient states: was seen here yesterday iw iw : 10:20 Social history: Smoking status: [facility] : 10:22 BP 149 / 107; Pulse 99bpm; Resp 16bpm; Pulse Ox 95% RA; 74.84 kg; Height 5 ft. 6 iw in.; BMI: 26.6; Pain 08/04, Adult; iw
--- NOTE | 2023-06-09 11:36 | EDPHYS ---
Physician Documentation [facility] Name: Reji Ramirez Jr Age: 37 yrs Sex: Male : 1985 Arrival Date: 06/09/2023 Time: 10:13 Bed 6 Private MD: ANITRA Physician Tyler Chung HPI: 06/09 10:40 This 37 yrs old Male presents to ER via Ambulatory with complaints of Facial kierra Swelling. 10:40 The patient presents with broken tooth/teeth, pain, redness, swelling. The problem is kierra located in the left cheek and left jaw. Onset: The symptoms/episode began/occurred 3 day(s) ago. Duration: The symptoms are continuous, and are steadily getting worse. Modifying factors: The symptoms are alleviated by nothing, the symptoms are aggravated by chewing, food. Associated signs and symptoms: Pertinent positives: pain, redness in area, swelling. Severity of symptoms: At their worst the symptoms were moderate, in the emergency department the symptoms are actually worse, mildly. The patient has experienced similar episodes in the past, several times. Historical: - Allergies: 10:20 No Known Allergies; hb - Home Meds: 10:20 None [Active]; hb - PMHx: 10:20 narcolepsy; hb - PSHx: 10:20 Brain tumor resection; hb 10:24 PAPIER MACHE MOLDER shunt; iw - Immunization history:: Adult Immunizations up to date. - Social history:: Smoking status: Patient reports the use of cigarette tobacco products, smokes one-half pack cigarettes per day. - Family history:: not pertinent. ROS: 10:40 Constitutional: Negative for fever, chills, and weight loss, Eyes: Negative for injury, kierra pain, redness, and discharge, Neck: Negative for injury, pain, and swelling, Cardiovascular: Negative for chest pain, palpitations, and edema, Respiratory: Negative for shortness of breath, cough, wheezing, and pleuritic chest pain, Abdomen/GI: Negative for abdominal pain, nausea, vomiting, diarrhea, and constipation, Back: Negative for injury and pain, : Negative for injury, bleeding, discharge, and swelling, MS/Extremity: Negative for injury and deformity, Skin: Negative for injury, rash, and discoloration, Neuro: Negative for headache, weakness, numbness, tingling, and seizure, Psych: Negative for depression, anxiety, suicide ideation, homicidal ideation, and hallucinations, Allergy/Immunology: Negative for hives, rash, and allergies, Endocrine: Negative for neck swelling, polydipsia, polyuria, polyphagia, and marked weight changes, Hematologic/Lymphatic: Negative for swollen nodes, abnormal bleeding, and unusual bruising. 10:40 ENT: Positive for dental pain, Gum pain Exam: 10:40 Constitutional: This is a well developed, well nourished patient who is awake, alert, kierra and in no acute distress. Eyes: Pupils equal round and reactive to light, extra-ocular motions intact. Lids and lashes normal. Conjunctiva and sclera are non-icteric and not injected. Cornea within normal limits. Periorbital areas with no swelling, redness, or edema. Neck: Trachea midline, no thyromegaly or masses palpated, and no cervical lymphadenopathy. Supple, full range of motion without nuchal rigidity, or vertebral point tenderness. No Meningismus. Chest/axilla: Normal chest wall appearance and motion. Nontender with no deformity. No lesions are appreciated. Cardiovascular: Regular rate and rhythm with a normal S1 and S2. No gallops, murmurs, or rubs. Normal PMI, no JVD. No pulse deficits. Respiratory: Lungs have equal breath sounds bilaterally, clear to auscultation and percussion. No rales, rhonchi or wheezes noted. No increased work of breathing, no retractions or nasal flaring. Abdomen/GI: Soft, non-tender, with normal bowel sounds. No distension or tympany. No guarding or rebound. No evidence of tenderness throughout. Back: No spinal tenderness. No costovertebral tenderness. Full range of motion. Male : Normal genitalia with no discharge or lesions. Skin: Warm, dry with normal turgor. Normal color with no rashes, no lesions, and no evidence of cellulitis. MS/ Extremity: Pulses equal, no cyanosis. Neurovascular intact. Full, normal range of motion. Neuro: Awake and alert, GCS 15, oriented to person, place, time, and situation. Cranial nerves II-XII grossly intact. Motor strength 5/5 in all extremities. Sensory grossly intact. Cerebellar exam normal. Normal gait. Psych: Awake, alert, with orientation to person, place and time. Behavior, mood, and affect are within normal limits. 10:40 Head/face: Noted is swelling, tenderness, that is moderate, of the left cheek and left jaw. 10:40 ENT: Mouth: Oral mucosa: moist, Gums: noted to have cellulitis, reddened, swollen, on the gums, left buccal mucosa, upper left cuspid, upper left first bicuspid, upper left second bicuspid and upper left first molar, Dental exam: abscess, that is moderate, specifically in the upper left cuspid (#11), upper left first bicuspid (#12), upper left second bicuspid (#13) and upper left first molar (#14), cellulitis, dental caries, that is severe, specifically in the upper left lateral incisor (#10), upper left cuspid (#11), upper left first bicuspid (#12), upper left second bicuspid (#13) and upper left first molar (#14), gum swelling, that is moderate, specifically in the upper left cuspid (#11), upper left first bicuspid (#12), upper left second bicuspid (#13) and upper left first molar (#14). Vital Signs: 10:22 BP 149 / 107; Pulse 99; Resp 16; Temp 99.1(TE); Pulse Ox 95% on R/A; Weight 74.84 kg; iw Height 5 ft. 6 in. ; Pain 9/10; 12:26 BP 140 / 98; Pulse 87; Resp 18; Pulse Ox 100% on R/A; ph 13:34 BP 138 / 98; Pulse 86; Resp 18; Pulse Ox 99% on R/A; ph 10:22 Body Mass Index 26.63 (74.84 kg, 167.64 cm) iw 10:22 Pain Scale: Adult iw MDM: 10:16 Patient medically screened. kierra 10:43 Differential diagnosis: dental caries, gingivitis, dental abscess. Data reviewed: vital kierra signs, nurses notes, lab test result(s), radiologic studies, CT scan. Consideration of Admission/Observation Escalation of care including admission/observation considered. I considered the following discharge prescriptions or medication management in the emergency department Medications were administered in the Emergency Department. See MAR. Test considered but Not performed: MRI: no facial MRI. Care significantly affected by the following chronic conditions: NARCOLEPSY. Counseling: I had a detailed discussion with the patient and/or guardian regarding: the historical points, exam findings, and any diagnostic results supporting the discharge/admit diagnosis, lab results, radiology results, the need to transfer to another facility, for higher level of care, [facility] does not immediately have the required specialist. 06/09 10:21 Order name: CBC with Diff; Complete Time: 11:08 [facility] 06/09 10:21 Order name: Comprehensive Metabolic Panel; Complete Time: 11:35 [facility] 06/09 10:21 Order name: CT Maxillofacial W/cont kierra Administered Medications: 10:52 Drug: NS 0.9% IV 1000 ml Route: IV; Rate: 1 bolus; Site: left antecubital; ph 13:35 Follow up: Response: No adverse reaction; IV Status: Completed infusion; IV Intake: ph 1000ml 10:52 Drug: Clindamycin IVPB 900 mg Route: IVPB; Infused Over: 30 mins; Site: left forearm; ph 11:30 Follow up: Response: No adverse reaction; IV Status: Completed infusion ph 10:52 Drug: fentaNYL (PF) IVP 25 mcg Route: IVP; Site: left forearm; ph 11:49 Follow up: Response: No adverse reaction ph 10:52 Drug: Ondansetron IVP 4 mg Route: IVP; Site: left forearm; ph 11:50 Follow up: Response: No adverse reaction ph 11:49 Drug: Rocephin IV 1 grams Route: IV; Rate: per protocol; Site: left forearm; ph 12:20 Follow up: Response: No adverse reaction; IV Status: Completed infusion ph Disposition Summary: 06/09/23 11:35 Transfer Ordered Transfer Location: [facility] kierra Reason: Higher level of care kierra Condition: Fair kierra Problem: new kierra Symptoms: are unchanged kierra Accepting Physician: TO ER(06/09/23 13:35) ph Diagnosis - Dental root caries kierra - Dental caries, unspecified kierra - Periapical abscess without sinus kierra - Elevated white blood cell count kierra Forms: - Medication Reconciliation Form kierra - SBAR form kierra Signatures: Dispatcher [employer] EDTyler Barbosa MD MD cha Williams, Irene, RN RN Lucia Alexander RN RN ph Baxter, Heather, RN RN Corrections: (The following items were deleted from the chart) 10:25 10:20 Social history: Smoking status: [facility] 13:35 11:35 TO [facility] ph
[2023-06-09] MEDS ORDERED: CEFTRIAXONE 1000 MG/VIAL ONE (11:39)
[2023-06-09] MEDS ORDERED: NA CHLORIDE 0.9% 50 ML ONE (11:39)
--- NOTE | 2023-06-09 12:15 | RAD REPORT ---
EXAM DESCRIPTION: CT - FC CLINICAL HISTORY: Pain;Swelling COMPARISON: No comparisons TECHNIQUE: Axial thin axial CT images of the maxillofacial soft tissues and upper neck were obtained following intravenous administration of 95 mL Isovue-300. Sagittal and coronal reconstruction images were generated and reviewed. All CT scans are performed using dose optimization technique as appropriate and may include automated exposure control or mA/KV adjustment according to patient size. FINDINGS: Asymmetric subcutaneous fat stranding and soft tissue thickening along the left premalar a nd left cheek soft tissues. A tiny left subperiosteal abscess overlies the left maxillary alveolus, a t the level of the left maxillary lateral incisor. A small periapical abscess is present at that leve l, with lingular cortex rarefaction, but no discrete defect, see axial image 85 series 201. Other sca ttered periapical abscess ease along the bilateral maxillary first premolar is and right maxillary ca nine, with other sequelae of treated and untreated dental and periodontal disease. No evidence of acute fractures. Focus of sclerosis along the left mandibular body, and other areas of patchy sclerosis bilaterally may relate to sequelae of prior dental infection.The mandible is otherw ise intact. Scattered mildly prominent lymph nodes throughout the neck, likely reactive. The salivary glands are unremarkable. The mucosal spaces are preserved without suspicious focal mucosal lesion. The paraphary ngeal and retropharyngeal spaces are unremarkable. Vascular structures are patent. The globes and orbital contents are grossly unremarkable.The paranasal sinuses and mastoids are clear . IMPRESSION: Multiple small periapical abscesses, with a subperiosteal abscess along the left maxilla ry lingular cortex at the level of the lateral incisor. Overlying cellulitis. Other findings as detailed above. The findings were communicated to Tyler Chung on 06/09/2023 at 12:08 hours.
[2023-06-09 14:03] VITALS: TEMP 99.1
[2023-06-09 14:05] VITALS: BP 138/98; O2SAT 99
== END 2023-06-09 13:35 | disposition short-term general hospital (02) ==
LOC: ER 10:13
DX: K04.7 Periapical abscess without sinus (principal); K02.7 Dental root caries; D72.829 Elevated white blood cell count, unspecified; F17.210 Nicotine dependence, cigarettes, uncomplicated
CPT/HCPCS: 96365; 96367; 96361; 85025; 36415; 80053; 70487; 96375; 99285; Q9967; J3010; J2405; J7030; J0696